=== PATIENT | male | born 1970 | race Caucasian/White ===

== ENCOUNTER 2024-11-23 17:12 | Emergency (ER) | payer OTHER, SELFPAY ==
--- OUTSIDE RECORDS SUMMARY | 2005-05-02 05:00 | XMS_ITS | Continuity of Care Document ---
Author Organization [facility] Address [address] [place] [address] [address] [place] [address] Phone Care Team Providers Care Tool And Machine Maintainer Name Role Phone [place] OD, Gabriel Unavailable Unavailable Advance Directives Directive Yes / No Effective Date File Name No Information Encounters Encounter Description Practice Location Reason(s) For Visit Diagnoses Date Provider Providers Copied on Encounter [facility], [address], [place], [place], [id number], [place] tel:[phone] [facility] [place] No Information 7-200 6 [place] OD Gabriel. [address] [facility] , [address], [place], [address], [place]. tel:[phone] Family History Family Member Type Diagnosis Age At Onset No Information Payers Payer name Insurance type Covered green party ID Authorchandu mueller(s) [facility] CI [id number] Social History Type Description Quantity Date Captured Comments Sex Male Smoking Status No Information Chief Complaint And Reason For Visit No Information Reason For Referral Reason For Referral No Information History Of Present Illness Encounter Date Complaint History Of Prese nt Illness No Information Functional Status Date Functional Assessmen t No Information Instructions Date Instruction Additional Infor mation No Information Assessments Type Assessment Date No Information Patient Care Teams Name Effective Dates (start - stop) Status Members No Information
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
[2024-11-23 17:13] VITALS: BP 169/81; PULSE 111; RESP 16; TEMP 36.8; O2SAT 98
--- OUTSIDE RECORDS SUMMARY | 2024-11-23 17:13 | XMS_ITS | Clinical Summary ---
Author Organization [facility] Address [address] [place] [address] Care Team Providers Care Head Athletic Trainer Name Role Phone Bharat Pope MD Primary Care Provider [phone] Source Comments [facility],non-owned Affiliates and Associated Physician Practices is amultiple site organization consisting of ambulatory clinics and hospital sitesin [place], [place], [place] and [place]. This disclosure is being madepursuant to the Care Everywhere program and may not contain all information available regarding this patient. Last updated 17.[facility] Allergies No known active allergies Medications * Be aware that medications may not be up to date on this document. Alwaysverify current medications with the patient. LISINOPRIL PO Active METFORMIN HCL ER, MOD, PO Active albuterol HFA (PROVENTIL;DEMETRIUS OTILIO;PROAIR) 108 (90 BASE) MCG/ACT inhalerIndicatio ns:Acute bronchitis, unspecified organism Inhale 2 puffs by mouth every 4 hours as needed for Wheezing 1 Inhaler 8 Active benzonatate (TESSALON) 200 MG capsuleIndicatio ns:Acute bronchitis, unspecified organism Take 1 capsule by mouth 3 times daily as needed for Cough 30 capsule 8 Active Family History Medical History Relation Name Comments Ulcerative Colitis Maternal Aunt Relation Name Status Comments Maternal Aunt Social History Tobacco Use Types Packs/Day Years Used Date Smoking Tobacco: Former Cigarettes Q uit: 2007 Smokeless Tobacco: Never Sex and Gender Information Value Date Recorded Sex Assigned at Not on file Legal Sex Male 3:15 PM CLAIMS SORTER Gender Identity Not on file Sexual Orientation Not on file Last Filed Vital Signs Vital Sign Reading Time Taken Comments Blood Pressure 154/88 03/12/2018 11:29 AM CLAIMS [facility]TER Pulse 107 03/12/2018 11:29 AM CLAIMS [facility]TER Temperature 36.8 C (98.3 F) 03/12/2018 11:29 AM CLAIMS [facility]TER Respiratory Rate 16 03/12/2018 11:29 AM CLAIMS [facility]TER Oxygen Saturation 98% 03/12/2018 11:29 AM CLAIMS [facility]TER Inhaled Oxygen Concentration - - Weight 97.5 kg (215 lb) 03/12/2018 11:29 AM CLAIMS SORTER Height 181.6 cm (5' 11.5) 03/12/2018 11:[address] Body Mass Index 29.57 03/12/2018 11:29 AM CLAIMS SORTER Plan of Treatment Health Maintenance Due Date Last Done Comments COLOGUARD (AGES 45-75) - COL ON CA SCREENING 1971 COLON MONITORING 1971 COLONOSCOPY - COLON CA SCREENING 1971 CT COLONOGRAPHY - COLON CA SCREENING 1971 Colorectal Cancer Screening 1971 FIT - COLON CA SCREENING 1971 FLEX SIG - COLON CA SCREENING 1971 LIPID TESTING 1971 HIV SCREENING 11/11/1986 HEPATITIS C SCREENING 11/07/1989 DTAP/TDAP/TD VACCINES (1 - Tdap) 11/11/1990 HEPATITIS B VACCINE (1 of 3 - 19+ 3-dose series) 11/11/1990 SCREENING FOR DIABETES 01/29/2018 PNEUMOCOCCAL VACCINE 50+ (1 of 1 - PCV) 11/11/2021 ZOSTER VACCINE (1 of 2) 11/11/2021 DEPRESSION SCREENING 03/16/2024 COVID-19 VACCINE (1 - 2023-2 5 season) 2024 INFLUENZA VACCINE (#1) 2024 HIB VACCINE Aged Out No longer eligi ble based on patient's age to complete this topic HPV VACCINE Aged Out No longer eligi ble based on patient's age to complete this topic MENINGOCOCCAL (Group B) VACC INE SHARED DECISION-MAKING Aged Out No longer eligibl e based on patient's age to complete this topic MENINGOCOCCAL GROUPS A/C/Y/W VACCINE Aged Out No longer eligible b ased on patient's age to complete this topic Insurance [facility] Care Teams Head Athletic Trainer Relationship Specialty Start Date End Date Bharat Pope MD [facility] [place] [address] PCP - General Family Medicine 01/29/18
--- OUTSIDE RECORDS SUMMARY | 2024-11-23 17:14 | XMS_ITS | Patient Health Record ---
Author Organization [facility] Address [address] [place] [address] Care Team Providers Care Civil Engineer Helper Name Role Phone Erik Spencer MD Primary Care Provider Unavailab Te Sales Unavailable [phone] Reason For Referral No Information Problems Problem Type SNOMED Code ICD Code Onset Dates Problem Status W/U Status Risk Notes Problem 123036051 Diverticulosis o f large intestine without perforation or abscess without bleeding (K57.30) Active confirmed Plan Of Treatment No Information Insurance Providers Payer Name Payer Address Payer Phone Subscriber Number Group Number Insured Name Patient Relationship to Insured Coverage Start Date Coverage End Date [facility] [employer] E2 [address] [address] [place] [address] [phone] [id number] Erik Munoz Self - patient is the insured
--- OUTSIDE RECORDS SUMMARY | 2024-11-23 17:14 | XMS_ITS | Clinical Summary ---
Author Organization [facility] Building [address] Address [address] [place] [address] Care Team Providers Care Furnace Tapper Name Role Phone Erik Spencer MD Primary Care Provider [phone] Allergies Active Allergy Reactions Criticality Noted Date Comments Metformin Nausea only Low 04/27/2019 Medications lisinopril-hydr oCHLOROthiazide (ZESTORETIC) 20-12.5 mg per tablet Take 1 tablet by mouth daily 03/22/2019 Active cyclobenzaprine (FLEXERIL) 10 mg tablet TAKE 1 TABLET BY MOUTH EVERYDAY AT BEDTIME 03/22/2019 Active blood-glucose meter (OneTouch Verio Flex Start) kit Use to test blood glucose 2 times each day 1 each 07/15/2019 Active lancets (OneTouch Delica Lancets) 30 gauge miscIndications :Type 2 diabetes mellitus with hyperglycemia, without long-term current use of insulin ([facility]) Use to test blood glucose 2 times each day 200 each 3 01/26/2020 Active blood glucose diagnostic (OneTouch Verio test strips) stripIndication s:Type 2 diabetes mellitus with hyperglycemia, without long-term current use of insulin ([facility]) Use to test blood glucose 2 times each day 200 each 3 01/26/2020 Active amLODIPine (NORVASC) 10 mg tabletIndicatio ns:Type 2 diabetes mellitus with hyperglycemia, without long-term current use of insulin ([facility]) TAKE 1/2 TABLET DAILY 45 tablet 3 05/27/2021 Active multivitamin capsule Take 1 capsule by mouth daily Active pen needle, diabetic 31 gauge x /16 needle Use one /day for insulin pen. 50 each 5 03/18/2022 Active glimepiride (AMARYL) 2 mg tablet TAKE 1 TABLET BY MOUTH DAILY BEFORE BREAKFAST. 90 tablet 3 05/30/2022 Active atorvastatin (LIPITOR) 10 mg tabletIndicatio ns:Type 2 diabetes mellitus with hyperglycemia, without long-term current use of insulin ([facility]) TAKE 1 TABLET BY MOUTH EVERY DAY 90 tablet 3 06/02/2022 Active insulin glargine (LANTUS) 100 unit/mL (3 mL) pen for injection Inject 18 units under the skin once daily 15 mL 3 08/22/2022 Active dulaglutide (Trulicity) 3 mg/0.5 mL pen injector Inject 0.5 mL (3 mg total) under the skin every 7 days 2 mL 5 10/21/2022 Active Active Problems Problem Noted Date Diagnosed Date Type 2 diabetes mellitus wit h hyperglycemia, with long-term current use of insulin 04/27/2019 Assessment & Plan (10/21/2022 3:42 PM CDT): Diagnosed in 2017 Did not tolerate metformin. Started insulin March/2022 Control : not controlled A1c 9.2% on 10/21/22 A1c 8.1% on 06/17/22 A1c 10.6% on 03/18/22 A1c 8.1% on 06/13/21 A1c 7.6% on 12/13/20 Kidney: normal kidney functions- GFR 108 on 11/23/21 Plan: Patient to watch diet Check sugar if he suspects low sugar during the night. Continue Lantus insulin 18 units Qhs. Patient to work on diet Continue Glimepiride 2 mg /day Increase Trulicity to 3.0 mg once /week Monitor sugars 2 x per day and send records in one week. Hypoglycemia symptoms and treatment reviewed with patient. Call if having low sugars. Assessment & Plan (06/17/2022 4:20 PM CDT): Diagnosed in 2017 Did not tolerate metformin. Started insulin March/2022 Control : above target, but improved on insulin A1c 8.1% on 06/17/22 A1c 10.6% on 03/18/22 A1c 8.1% on 06/13/21 A1c 7.6% on 12/13/20 Kidney: normal kidney functions- GFR 108 on 11/23/21 Plan: Continue Lantus insulin 18 units Qhs. Patient to work on diet Continue Glimepiride 2 mg /day Continue Trulicity to 1.5 mg once /week Monitor sugars 2 x per day and send records in one week. Hypoglycemia symptoms and treatment reviewed with patient. Call if having low sugars. Assessment & Plan (03/18/2022 4:40 PM V BELT COVERER): Diagnosed in 2018 Did not tolerate metformin. Control : deterioration in control A1c 10.6% on 03/18/22 A1c 8.1% on 06/13/21 A1c 7.6% on 12/13/20 A1c 7.8% on 06/28/20 A1c 10.2% on 03/12/19. Kidney: normal kidney functions- GFR 108 on 11/23/21 Plan: Start Lantus insulin 12 units Qhs. Patient to work on diet Continue Glimepiride 2 mg /day Continue Trulicity to 1.5 mg once /week Monitor sugars 2 x per day and send records in one week. Hypoglycemia symptoms and treatment reviewed with patient. Call if having low sugars. Note : see media executive regarding heel pains. Assessment & Plan (06/13/2021 4:47 PM CDT): Diagnosed in 2018 Did not tolerate metformin. Control : higher sugars A1c 8.1% on 06/13/21 A1c 7.6% on 12/13/20 A1c 7.8% on 06/28/20 A1c 10.2% on 03/12/19. Kidney: normal kidney functions- GFR 94 on 09/08/20 Neuropathy : none, no lesions or abnormality found on the heel Plan: Patient to work on weight loss Increase Glimepiride 2 mg /day Continue Trulicity to 1.5 mg once /week Monitor sugars once /day and target am sugar 80-130. Hypoglycemia symptoms and treatment reviewed with patient. Call if having low sugars. Note : see media executive regarding heel pains. Assessment & Plan (12/13/2020 4:27 PM CDT): Diagnosed in 2018 Did not tolerate metformin. Control : not at target A1c 7.6% on 12/13/20 A1c 7.8% on 06/28/20 A1c 10.2% on 03/12/19. Kidney: normal kidney functions- GFR 94 on 09/08/20 Neuropathy : none, no lesions or abnormality found on the heel Plan: Patient to work on weight loss Continue Glimepiride 1 mg /day Continue Trulicity to 1.5 mg once /week Monitor sugars once /day and target am sugar 80-130. Hypoglycemia symptoms and treatment reviewed with patient. Call if having low sugars. Note : see media executive regarding heel pains. Assessment & Plan (06/28/2020 4:55 PM CDT): Diagnosed in 2017 Did not tolerate metformin. Control : not at target A1c 7.8% on 06/28/20 A1c 10.2% on 03/12/19. Kidney: normal kidney functions in Neuropathy : none, but poor foot care, with callus and long thick nails. Eye : needs exam Plan: Patient to work on weight loss Continue Glimepiride 1 mg /day Continue Trulicity to 1.5 mg once /week Monitor sugars once /day and target am sugar 80-130. Hypoglycemia symptoms and treatment reviewed with patient. Call if having low sugars. Ophthalmology exam on regular basis. Assessment & Plan (01/26/2020 5:30 PM V BELT COVERER): This is a chronic condition which is stable, controlled, and at goal less than 7% Personally reviewed Labs A1c today- 6.5 Medication- Continue Trulicity 1.5mg weekly Continue Glimeperide 1mg po daily Monitor blood sugar daily Continue to Email blood sugars to office. Continue with walking Continue to eat healthy last dilated eye exam was completed 06/04/19-normal Monofilament foot exam completed, protective senses intact Urine microalbumin/creatinine ratio - Not obtained, could not void currently lisinopril/HCTZ 20mg/12.5mg daily. Kidney function eGRF-97, BUN-15, creatinine- 0.93 BP today- 132/74, currently on lisinopril/HCTZ 20mg/12.5mg daily and amlodipine 5mg daily. LDL - 107 (10/15/2019), started atorvastatin 10mg daily. No history of macrovascular disease - CVA, [place]. Will repeat labs in May 2020 Assessment & Plan (10/20/2019 4:09 PM CDT): This is a chronic condition which is stable, controlled, and at goal. Labs reviewed. A1c today- 6.1 Down from 7.9 Medication- Continue Trulicity 1.5mg weekly Glimeperide 1mg po daily Monitor blood sugar daily Email blood sugars to office. Continue with walking Continue to eat healthy last dilated eye exam was completed 06/04/19-normal Monofilament foot exam completed, protective senses intact Urine microalbumin/creatinine ratio - Not obtained, could not void currently lisinopril/HCTZ 20mg/12.5mg daily. Kidney function eGRF-97, BUN-15, creatinine- 0.93 BP today- 140/80, currently on lisinopril/HCTZ 20mg/12.5mg daily and amlodipine 10mg daily. LDL - 107 (10/15/2019), started atorvastatin 10mg daily. No history of macrovascular disease - CVA, [place]. Assessment & Plan (07/15/2019 1:50 PM CDT): Condition is stable Discussed/ordered labs. Eat healthy, include fresh fruits and vegetables daily. Eat no more than 45-60 grams of carbs per meal. Do not eat fried foods more than once per week. Try moving at least a total of 30 minutes/day. This does not have to be done at one time. Please take medications as prescribed. Continue on Amaryl 2 mg daily after dinner, Trulicity 1.5 mg every 7 days. Please get a Dilated eye exam yearly and have results faxed to the office. Check Feet daily, watch for blisters, cuts or sores. Notify your doctor if wounds on feet are not healing. Check blood sugar 1-2 times per day and record. We will be requesting to see blood sugar at your next visit. Call office if blood sugars less than 80 or greater than 250, for 3 days. You may need a medication adjustment. If your blood sugar level is below 80, eat or drink 15 grams of fast-acting carbohydrate. (examples: 4 oz ( cup) of fruit juice, 4 oz of regular soda or 4 glucose tablets.) Check your blood sugar level 15 minutes later. If the level is still low (less than 100 mg/dL), have another 15 grams of carbohydrate. When the level returns to 100 mg/dL, eat a snack or meal that contains carbohydrates. This will help prevent another drop in blood sugar. Always carry a source of fast-acting carbohydrate with you. Essential hypertension 04/27/2019 Assessment & Plan (06/28/2020 4:56 PM CDT): Controlled with medication - low salt diet - continue medication Assessment & Plan (01/26/2020 5:24 PM V BELT COVERER): This is a chronic condition and is stable, controlled, at goal of less than 140/90. Personally reviewed labs. Avoid caffeine, caffeine will raise blood pressure and excessive alcohol consumption. Monitor your weight and B/P. Please take medications as prescribed. BP today- 132/74, currently on lisinopril/HCTZ 20mg/12.5mg daily and amlodipine 5mg daily. Assessment & Plan (10/20/2019 4:10 PM CDT): This is a chronic condition and is stable, controlled, Reviewed labs. B/p-140/80 Avoid caffeine, caffeine will raise blood pressure and excessive alcohol consumption. Monitor your weight and B/P. email results to office Please take medications as prescribed. Continue on lisinopril/HCTZ 20mg/12.5mg daily and amlodipine 10mg daily. Assessment & Plan (07/15/2019 2:16 PM CDT): Condition is stable Discussed/ordered labs. Eat healthy, include fresh fruits and vegetables daily. Do not eat fried foods more than once per week. Avoid caffeine, caffeine will raise blood pressure. Avoiding excessive alcohol consumption. Stick to 1 drink for women/2 drinks for men. Monitor your weight. A 10 pound weight loss can help to lower your blood pressure. Try moving at least a total of 30 minutes/day. This does not have to be done at one time. Please take medications as prescribed. Continue on Lisniopril - hydrochlorothiazide 20-12.5 mg daily, amlodipine 10 mg daily. Check blood pressure at home and record. The correct way to check a blood pressure after 5 minutes of rest and while the patient is seated, with feet on the floor and the arm supported at heart level. Most patients with diabetes and hypertension should have a blood pressure goal of less than 140 /90. If you blood pressure is running higher than 140/90, please contact the provider who is ordering your blood pressure medication for an adjustment. Mixed hyperlipidemia 04/27/2019 Assessment & Plan (06/28/2020 4:55 PM CDT): Patient on statin - continue medication - continue diet. Assessment & Plan (01/26/2020 5:23 PM V BELT COVERER): This is a chronic condition which is improving, but not at goal for LDL <70. Personally reviewed lipid panel. Encouraged to eat healthy, include fresh fruits and vegetables daily and avoid eating fried foods more than once per week. Please take medications as prescribed. LDL - 107 (10/15/2019), started atorvastatin 10mg daily. No history of macrovascular disease - CVA, [place]. Will repeat labs in May 2020 Assessment & Plan (10/20/2019 4:14 PM CDT): This is a chronic condition which is elevated, not a goal Reviewed labs. LDL - 107 (10/15/2019), started atorvastatin 10mg daily. Encouraged to eat healthy, include fresh fruits and vegetables daily and avoid eating fried foods more than once per week. Continue walking Please take medications as prescribed. Assessment & Plan (07/15/2019 2:18 PM CDT): Condition is stable Discussed/ordered labs. Eat healthy, include fresh fruits and vegetables daily. Eat no more than 45-60 grams of carbs per meal. Do not eat fried foods more than once per week. Try moving at least a total of 30 minutes/day. This does not have to be done at one time. Please obtain lipid panel before next visit. Immunizations Immunization Administration Dates Next Due Influenza, Quadrivalent, Lorna l Culture-based MDCK, Preservative Free, Antibiotic Free, Intramuscular 11/15/2021,12/07/2019 Influenza, Quadrivalent, Spl it, Preservative Free, Intramuscular 12/13/2020 ZOSTER Recombinant 05/01/2022 Medical History Medical History Date Comments Hypertension Type 2 diabetes mellitus Hyperlipidemia Family History Medical History Relation Name Comments Diabetes Father Relation Name Status Comments Father Social History Tobacco Use Types Packs/Day Years Used Date Smoking Tobacco: Former Smokeless Tobacco: Never Tobacco Cessation:Counseling Given: Not Answered Personal Safety Answer Date Recorded Getting School Help Needed Not on file 04/02 Sex and Gender Information Value Date Recorded Sex Assigned at Not on file Legal Sex Male 4:07 PM V BELT COVERER Gender Identity Not on file Sexual Orientation Not on file Obstetrics History Last Filed Vital Signs Vital Sign Reading Time Taken Comments Blood Pressure 130/68 10/21/2022 3:09 PM CDT Pulse - - Temperature - - Respiratory Rate - - Oxygen Saturation - - Inhaled Oxygen Concentration - - Weight 93.8 kg (206 lb 12.8 oz) 10/21/2022 3:09 PM CDT Height 180.3 cm (5' 11) 10/21/2022 3:09 PM CDT Body Mass Index 28.84 10/21/2022 3:09 PM CDT Plan of Treatment Health Maintenance Due Date Last Done Comments Colon Cancer Screening-Colonoscopy 1971 Depression Screening 1971 Hepatitis C Screening 1971 Prostate Cancer Screening-PSA 1971 DTaP/Tdap/Td Vaccine (1 - Tdap) 11/11/1982 Hepatitis B Screening 11/11/1989 Regular Well Visit/Exam 18-64 11/11/1989 Pneumococcal vaccine <65 (1 of 2 - PCV) 11/11/1990 Dilated Eye Exam 06/03/2021 06/04/2019, 06/04/2019 Zoster Vaccine (2 of 2) 06/26/2022 05/01/2022 Albumin Creatinine Ratio, Urine 11/23/2022 2 Lipid Panel 11/23/2022 11/23/2021, 08/15, 10/15/2019, Additional history exists eGFR 11/23/2022 11/23/2021, 08/15, 06/08/2019 Hemoglobin A1C 04/23/2023 10/21/2022, 04/0 06/2022, 03/18/2022, Additional history exists Foot Exam 10/22/2023 10/21/2022, 04/0 06/2022, 03/18/2022, Additional history exists Covid-19 Vaccine (5 2024-2 6 season) 2024 11/22/2021, 01/07/2021, 07/05/2020, Additional history exists Influenza Vaccine (#1) 2024 2, 12/13/2020, 12/07/2019 Procedures Procedure Name Priority Date/Time Associated Diagnosis Comments POCT HEMOGLOBIN A1C Routine 10/21/2022 3 :06 PM CDT Type 2 diabetes mellitus with hyperglycemia, with long-term current use of insulin ([facility]) COMPREHENSIVE METABOLIC PANEL Routine 11/23/2021 10:01 AM CDT LIPID PANEL Routine 11/23/2021 10:01 AM CDT ALBUMIN CREATININE RATIO, URINE Routine 11/23/2021 10:01 AM CDT DIABETES EYE EXAM Routine 06/04/2019 from Last 3 Months or Most Recently Relevant to Health Maintenance Results * (ABNORMAL) POCT hemoglobin A1c (10/21/2022 3:06 PM CDT) Hemoglobin A1C, POC 9.2 % Blood 10/21/2022 3:06 PM CDT Georgette Gill MD POINT OF CARE TEST ORDERABLES Final Result * Albumin Creatinine Ratio, Urine (11/23/2021 10:01 AM CDT) Creatinine, ur 42 20 - 320 mg/dL [facility] Microalbumin, ur 0.6 See Note: mg/dL [facility] Comment: Reference Range: Reference Range Not established Microalbumin/creat ratio 14 <30 mcg/mg creat [facility] Comment: The ADA defines abnormalities in albumin excretion as follows: Albuminuria Category Result (mcg/mg creatinine) Normal to Mildly increased <30 Moderately increased 30-299 Severely increased > OR = 300 The ADA recommends that at least two of three specimens collected within a 3-6 month period be abnormal before considering a patient to be within a diagnostic category. 11/23/2021 10:0 1 AM CDT 11/23/2021 10:03 AM CDT Narrative [facility] - 11/24/2021 9:35 AM CDT FASTING:YES FASTING: YES Georgette Gill MD LAB URINE ORDERABLES Final Res ult Performing Organization Address City/[facility]/ZIP Co de Phone Number [facility] [id number] [address] [phone] * Lipid panel (11/23/2021 10:01 AM CDT) Pathologist [facility] Cholesterol 156 <200 mg/dL [facility] HDL 58 > OR = 40 mg/dL [facility] Triglycerides 120 <150 mg/dL [facility] LDL 77 mg/dL (calc) [facility] Comment: Reference range: <100 Desirable range <100 mg/dL for primary prevention; <70 mg/dL for patients with CHD or diabetic patients with > or = 2 CHD risk factors. LDL-C is now calculated using the Angel-Mando calculation, which is a validated novel method providing better accuracy than the Friedewald equation in the estimation of LDL-C. Angel SS et al. NIXON. 2013;310(19): 9212-7140 (http://education.Zogenix.enMarkit/faq/PMJ597) Chol/HDL ratio 2.7 <5.0 (calc) [facility] Non-HDL, (LDL+VLDL) 98 <130 mg/dL (calc) [facility] Comment: For patients with diabetes plus 1 major ASCVD risk factor, treating to a non-HDL-C goal of <100 mg/dL (LDL-C of <70 mg/dL) is considered a therapeutic option. 11/23/2021 10:0 1 AM CDT 11/23/2021 10:03 AM CDT Narrative [facility] - 11/24/2021 9:35 AM CDT FASTING:YES FASTING: YES Georgette Gill MD LAB BLOOD ORDERABLES Final Res ult Performing Organization Address City/[facility]/ZIP Co de Phone Number [facility] [address] [address] [phone] * (ABNORMAL) Comprehensive metabolic panel (11/23/2021 10:01 AM CDT) Glucose 220(H) 65 - 99 mg/dL [facility] Comment: Fasting reference interval For someone without known diabetes, a glucose value >125 mg/dL indicates that they may have diabetes and this should be confirmed with a follow-up test. BUN 11 7 - 25 mg/dL [facility] Creatinine 0.79 0.70 - 1.30 mg/dL [facility] eGFR 108 > OR = 60 mL/min/1. 73m2 [facility] Comment: The eGFR is based on the CKD-EPI 2020 equation. To calculate the new eGFR from a previous Creatinine or Cystatin C result, go to https://www.kidney.org/professionals/ kdoqi/gfr%5Fcalculator BUN/creat ratio NOT APPLICABLE 6 - 22 (calc) [facility] Sodium 133(L) 135 - 146 mmol/L [facility] Potassium, pl 4.3 3.5 - 5.3 mmol/L [facility] Chloride 98 98 - 110 mmol/L [facility] CO2 27 20 - 32 mmol/L [facility] Calcium 8.8 8.6 - 10.3 mg/dL [facility] Protein, sr 7.7 6.1 - 8.1 g/dL [facility] Albumin 4.4 3.6 - 5.1 g/dL [facility] GLOBULIN 3.3 1.9 - 3.7 g/dL (calc) [facility] Alb/glob ratio 1.3 1.0 - 2.5 (calc) [facility] Bilirubin, total 0.7 0.2 - 1.2 mg/dL [facility] Alk phos 100 35 - 144 U/L [facility] AST 26 10 - 35 U/L [facility] ALT (SGPT) 21 9 - 46 U/L [facility] 11/23/2021 10:0 1 AM CDT 11/23/2021 10:03 AM CDT Narrative [facility] - 11/24/2021 9:35 AM CDT FASTING:YES FASTING: YES us Georgette Gill MD LAB BLOOD ORDERABLES Final Res ult [facility] [id number] [address] [phone] * DIABETES EYE EXAM (06/04/2019) us Dominique Peralta NP HEALTH MAINTENANCE Edited Resul t - Final from Last 3 Months or Most Recently Relevant to Health Maintenance Insurance [facility] [employer] [place] H[place]O Address: [facility] [id number] [id number] Care Teams Furnace Tapper Relationship Specialty Start Date End Date Erik Spencer MD [address] [place] [address] PCP - General Family Medicine 12/13/20
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
== END 2024-11-23 19:13 | disposition home or self-care (01) ==
PROVIDERS: Emergency Provider Physician Assistant; PCP Nurse Practitioner
DX: S00.81XA Abrasion of other part of head, initial encounter (principal); E11.9 Type 2 diabetes mellitus without complications; I10 Essential (primary) hypertension; E78.5 Hyperlipidemia, unspecified; Z79.84 Long term (current) use of oral hypoglycemic drugs; Z79.4 Long term (current) use of insulin; Z79.899 Other long term (current) drug therapy; Y04.2XXA Assault by strike against or bumped into by another person, initial encounter
CPT/HCPCS: 70450; 70486; 99284